=== PATIENT | female | born 1960 | race Caucasian/White ===

== ENCOUNTER 2018-07-01 04:18 | Inpatient (IN) ==
--- NOTE | 2018-07-01 04:52 | PROVIDER DOCUMENTATION ---
HPI-Abdominal Pain/GI Problem - General Chief Complaint: Abdominal Pain Stated Complaint: ABDOMINAL PAIN Time Seen by Provider: 07/01/18 04:51 Allergies/Adverse Reactions: Patient Allergies Allergy/AdvReac Type Severity Reaction Status Date / Time cefuroxime axetil * Allergy Severe RASH Verified 10/09/15 12:27 [From Ceftin] codeine Allergy RASH Verified 10/09/15 12:27 levofloxacin [From Levaquin] Allergy RASH Verified 10/09/15 12:27 metronidazole [From Flagyl] Allergy RASH Verified 10/09/15 12:27 Penicillins Allergy RASH Verified 10/09/15 12:27 Home Medications: Home Medication List Medication Instructions Recorded Confirmed Last Taken Type Aspirin 81 mg PO DAILY 04/07/14 07/01/18 10/08/15 History Fluoxetine HCl [Prozac] 20 mg PO HS 04/07/14 07/01/18 10/08/15 History Paroxetine HCl [Paxil] 20 mg PO DAILY 04/07/14 07/01/18 10/08/15 History Diclofenac Na D.r. [Voltaren] 50 mg PO BID 07/01/18 07/01/18 Unknown History Fexofenadine [Gaviota] 180 mg PO DAILY 07/01/18 07/01/18 Unknown History Lansoprazole [Prevacid] 30 mg PO DAILY 07/01/18 07/01/18 Unknown History Losartan/Hydrochlorothiazide 1 tab PO DAILY 07/01/18 07/01/18 Unknown History [Losartan-Hctz 100-25 mg Tab] Vitamin E 1,000 unit PO DAILY 07/01/18 07/01/18 Unknown History - History of Present Illness-ABD Nature of Presenting Problems: A 57 y/o female presents with Abd pain, dry heaves and nausea. The pt started having symptoms on and since then has been getting progressively worse. The pt was in the ER on and was d/c home after she had blood work and her symptoms were controlled. The pt felt better for a day and did not need to take her meds but last night her symptoms got worse and could not tolerate it. Has been having dry heaves and nausea. Has had a BM yesterday. Denies any fever of urinary symptoms. Took some hydrocodone last night and did not feel better. Review of Systems - Adult - REVIEW OF SYSTEMS - ADULT Constitutional: reports: no symptoms reported Eyes: reports: no symptoms reported Ears, Nose, Mouth & Throat: reports: no symptoms reported Cardiovascular: reports: no symptoms reported Respiratory: reports: no symptoms reported Gastrointestinal: reports: see HPI Genitourinary: reports: no symptoms reported Musculoskeletal: reports: no symptoms reported Integumentary: reports: no symptoms reported Neurological: reports: no symptoms reported Psychiatric: reports: no symptoms reported Endocrine: reports: no symptoms reported Hematologic/Lymphatic: reports: no symptoms reported Allergic/Immunologic: reports: no symptoms reported All Other Systems: Reviewed and Negative Past History - Adult - PAST MEDICAL HISTORY-ADULT Review of Records: reports: Old Records Reviewed, Nursing Assessment Review, Medications Reviewed, Social history reviewed & non-contributory. Major Childhood Illnesses: reports: denies history Cardiovascular: reports: denies history Respiratory: reports: denies history Gastrointestinal: reports: GERD Obstetrical/Gynecological: reports: denies history Genitourinary: reports: denies history Musculoskeletal: reports: neck/back injury (mild LBP) Neurological: reports: denies history Psychiatric: reports: anxiety Endocrine/Immune: reports: denies history - PRIOR SURGERIES/PROCEDURES Surgical/Procedure History: reports: BTL, other (ovary, breast lumpectomy) Physical Exam-General - CONSTITUTIONAL General Appearance: appears well, moderate distress Progress - PLAN OF CARE/RESULTS Progress/Plan/Lab Results: Vital Signs - 8 hr 07/01/18 04:29 Temperature 97.5 F L Pulse Rate 99 H Respiratory Rate 16 Blood Pressure 132/83 O2 Sat by Pulse Oximetry 96 CT results d/w pt and her . discussed the plan. Will place a NG tube, NPO, Protonix and consult surgery. d/w Dr Chase. agrees with the plan. admit to PCP and he will be on coonsult. @7:00 am d/w Dr Tidwell. Plan to admit the pt. Result Diagrams: 07/01/18 05:18 07/01/18 05:18 Departure - Departure Date of Disposition Decision: 07/01/18 Time of Disposition Decision: 07:20 DIAGNOSIS: Mesenteric mass, Small bowel obstruction Disposition: ADMITTED INPATIENT 09 Certified Medical Emergency: Emergent Condition: Stable Referrals and Follow-Ups: River Tidwell MD [Primary Care Provider] - - Critical Care Note This patient required my direct & personal management of CC.: No Attestation - Physician/ MOO Attestation Patient care was provided by Advanced Practice Provider:: No The physician spent face to face time with patient:: Yes Advanced Practice Provider documentation review:: Supervising physician onsite and consulted in the evaluation and care of this patient. The physician did have a face to face encounter with the patient.
[2018-07-01 05:31] LABS: BASO# 0.03 X1000 (0.0-0.2); BASO% 0.3 % (0.0-0.8); EOS# 0.11 X1000 (0.0-0.7); HEMATOCRIT 39.2 % (37.0-47.0); IMM GRAN# 0.02 X1000 (0.0-0.04); IMM GRAN% 0.2 % (0.0-0.5); LYMPH# 1.19 X1000 (1.2-3.4); LYMPH% 11.2 % (20.5-51.1); MCH 29.7 PG (27-31); MCHC 33.2 g/dL (33-37); MCV 89.5 FL (81-99); MONO# 0.91 X1000 (0.11-0.59); MONO% 8.6 % (1.7-9.3); MPV 9.6 FL (7.4-10.4); NEUT# 8.35 X1000 (1.4-6.5); NEUT% 78.7 % (42.2-75.2); PLT 349 X1000 (130-400); RBC 4.38 XMIL (4.2-5.4); RDW 13.2 % (11.5-14.5); WBC 10.61 X1000 (4.8-10.8)
[2018-07-01 06:11] LABS: AGAP 14; ALB/GLOB RATIO 1.4; ALBUMIN 4.1 g/dL (3.5-5.0); ALKALINE PHOSPHATASE 102 U/L (32-104); AMYLASE 23 U/L (20-200); BUN 14 mg/dL (8-22); CALCIUM 9.2 mg/dL (8.8-10.2); CHLORIDE 95 mmol/L (98-107); COSMO 275; CREATININE 0.7 mg/dL (0.5-0.9); ESTIMATED GFR > 60; GLUCOSE 148 mg/dL (70-104); GOT 18 U/L (10-30); GPT 19 U/L (10-36); LIPASE 21 U/L (13-60); POTASSIUM 3.6 mmol/L (3.5-5.1); SODIUM 136 mmol/L (136-145); TCO2 27 mmol/L (25-35); TOTAL BILIRUBIN 0.33 mg/dL (0.20-1.00)
[2018-07-01] MEDS ORDERED: SODIUM CHLORIDE 0.9% INJ ONE (06:29)
[2018-07-01] MEDS ORDERED: PROTONIX IV ONE (06:29)
[2018-07-01] MEDS ORDERED: NS 1,000 ML IV ONE (06:30)
[2018-07-01 06:32] LABS: URINE SOURCE CLEAN CATCH
[2018-07-01 07:01] LABS: BILIRUBIN URINE NEGATIVE (NEGATIVE); BLOOD URINE NEGATIVE (NEGATIVE); COLOR STRAW; GLUCOSE URINE NEGATIVE (NEGATIVE); KETONE URINE NEGATIVE (NEGATIVE); LEUKOCYTES URINE NEGATIVE (NEGATIVE); NITRITE URINE NEGATIVE (NEGATIVE); PH URINE 7.5; PROTEIN URINE TRACE mg/dL (NEGATIVE); SP GRAVITY URINE > 1.050; TURBIDITY URINE CLEAR (CLEAR); UROBILINOGEN URINE NORMAL (NORMAL)
[2018-07-01 07:03] LABS: UR EPITHELIAL CELLS <10 /HPF (<10); URINE BACTERIA NEGATIVE /HPF; URINE RBC <10 /HPF (<10); URINE WBC <10 /HPF (<10)
--- NOTE | 2018-07-01 07:20 | Diag Imaging Result Doc PS360 ---
EXAM: CT ABD/PELVIS W/IV CONT ONLY 07/01/2018 HISTORY: ABD PAIN TECHNIQUE: This exam was performed using automated exposure control, adjustment of mA or kV according to patient size, and/or use of iterative reconstruction technique. COMMENT: There are platelike atelectatic changes in the right lower lobe and the lingula. Otherwise the appearance of the visualized portion of the chest has not changed significantly since 10/09/2015. The aorta is normal in caliber. The mesenteric and renal arteries are patent. There is a somewhat poorly defined area of increased enhancement in the anterior medial left hepatic lobe seen on image 23 of the arterial phase measuring less than 14 mm in AP dimension. This is not clearly identifiable on the previous study of 02/03/2010 which is the most recent previous study with contrast. This abnormality is not visible on the portal venous phase and may represent a small hemangioma. Otherwise the liver is unremarkable. The spleen is within normal limits. The adrenal glands are not enlarged. The pancreas is stable in appearance. The kidneys are without evidence of hydronephrosis or mass. There are multiple central mesenteric masses particularly around image 90 of the portal venous phase where there is a mass in the central mesentery measuring in excess of 8.4 cm transversely. There is stranding into the mesenteric fat around this mass. There is a smaller nodule seen on image 96 on the left side. There are multiple enlarged mesenteric nodes otherwise. This abnormality was not present at the time the previous study of 2009 nor wasn't present on the noncontrast examination of 10/09/2015. The mass enhances peripherally and may contain some areas of central necrosis. There are no calcifications. There is stool in the colon without evidence of dilatation. There is retained fluid in the stomach. The duodenum is normal in appearance as is the proximal jejunum. There is progressive dilatation of the more distal small bowel loops and the loops surrounding the mass in the central mesentery are distended with air-fluid levels. There appears to be a transition zone around image 111 slightly to the right of the midline with the more distal small bowel loops being normal in caliber. Pelvis: There is a small amount of free fluid in the cul-de-sac. There are no pelvic masses. The urinary bladder is not distended. There is no evidence of significant adenopathy. There are severe degenerative disc changes in the lower lumbar spine. There is a bone island in the left sacral darvin. The regional skeleton has not changed significantly since 10/09/2015. IMPRESSION: Mesenteric mass with desmoplastic reaction in the mesenteric fat. The differential diagnosis would include mesenteric desmoid, carcinoid, or lymphoma. The possibility of sclerosing mesenteritis is considered less likely. Secondary partial small bowel obstruction. Electronically signed by Michael Nash 07/01/2018 7:18 AM
--- NOTE | 2018-07-01 07:55 | Diag Imaging Result Doc PS360 ---
EXAM: CHEST/ABD TUBE PLACEMENT 07/01/2018 HISTORY: NG tube placement TECHNIQUE: NG tube placement at 0744 COMMENT: There is an NG tube with its tip in the distal stomach. IMPRESSION: NG tube in the stomach. Electronically signed by Michael Nash 07/01/2018 7:52 AM
--- NOTE | 2018-07-01 08:30 | HISTORY AND PHYSICAL ---
HISTORY OF PRESENT ILLNESS: Ms. Conrad stated that 2 weeks ago, she started having some epigastric pain but it had gotten better, to be episodic. This last couple of days, it seems to be more tense, starting on . This is Monday. Seems to have been continuous. Called me at 3:30 this morning. Said the pain was just quite severe and she is very nauseated. I had her come to the emergency room. She denies known fever or chills but pretty severe pain with nausea. By report, her bowels had been moving up until yesterday. PAST MEDICAL HISTORY: 1. PT at age 21. Pulmonary angiogram documented PT, deep venous thrombosis. Was treated at [facility] with Coumadin for a year. 2. Eye infection at age 17. Details unknown. For a while, thought she might lose her eye. 3. Gastroesophageal reflux. 4. Allergic rhinitis, which is seasonal. 5. Dr. Edwards has seen her in the past for headaches. 6. Dr. Viera saw her for chronic back pain, musculoskeletal pain due to degenerative disk disease. 7. History of dysmenorrhea. 8. Obesity. 9. History of chest pain. 10. Shoulder dystocia. 11. Bursitis. 12. Muscle spasms. 13. Alopecia areata. 14. General anxiety disorder. 15. Hypercholesterolemia. 16. Primary hypothyroidism. 17. Hypertension. 18. Chronic fatigue syndrome. 19. Fatty infiltration of the liver, fatty liver disease. PAST SURGICAL HISTORY: 1. Left ovary removed in 2009. Right is still in place. 2. Dilatation and curettage on 08/28/2012. SOCIAL HISTORY: Born in [place], [place]. Lived in the [facility] most of her life. Former smoker, 1 pack per day for 20 years. Counseled for nutrition, counseled for physical activity in the past. She is , has one daughter. FAMILY HISTORY: Father living. Mother, I think is still living. History of heart trouble in the family. Had a colonoscopy back in September 2010. Has recently seen Dr. Washburn about this abdominal pain. MEDICATIONS: Reviewed her present medications. REVIEW OF SYSTEMS: General: Not aware of any weight gain or loss. She has not been able eat much in the last couple days because of the nausea and the pain. I am not sure if she can keep the food down. HEENT: No change in hearing or visual acuity. Respiratory: No increased work of breathing or dyspnea. Cardiovascular: No chest pain or tachy palpitations. GI/: Unremarkable. Musculoskeletal/Neurologic: No significant complaints. Endocrinologic/Hematologic: No significant history. PHYSICAL EXAMINATION: VITAL SIGNS: In the emergency room, temperature 97.5 degrees, pulse 84, respirations 14, blood pressure 132/73. HEENT: Pupils are equal and round. LUNGS: Clear in all lung balbuena. CARDIOVASCULAR EXAMINATION: Regular rhythm and rate without murmur or S3. ABDOMEN: Soft. At the present, abdomen is distended. Epigastrium is sore to touch, especially around the right upper quadrant and epigastric area. SKIN: Warm and dry. LAB: White count 10,610, hematocrit 39, platelet count 349,000. Sodium 136, potassium 3.6, chloride 95, BUN 14, creatinine 0.7, total calcium 9.2. AST is 18, ALT 19, alkaline phosphatase is 102, albumin is 4.1. Urinalysis was unremarkable. Abdominal and pelvic CT, mesenteric mass with desmoplastic reaction in the mesenteric fat. The differential diagnosis, apparently, mesenteric desmoid, carcinoid, or lymphoma. The possibility of sclerosing mesenteritis but less likely, and secondary partial small bowel obstruction. ASSESSMENT AND PLAN: 1. Small bowel obstruction, mesenteric mass. We will continue nasogastric tube. Give her some fluids. We will check and follow her electrolytes. Dr. Chase has been consulted and I will have Dr. Washburn follow as well, depending on what Dr. Chase wants to do. 2. History of pulmonary thromboembolism when she was young, at age 21. 3. History of gastroesophageal reflux. 4. History of dysmenorrhea. 5. Obesity. 6. Shoulder dystocia in the past. 7. History of primary hypothyroidism. 8. Hypertension. 9. At one point, felt she had steatohepatitis and fatty infiltration of the liver. Liver enzymes are down at this point. cc: River Tidwell MD
--- NOTE | 2018-07-01 09:43 | GENERAL SURGERY CONSULTATION ---
DATE: 07/01/2018 HISTORY OF PRESENT ILLNESS: It is 9 o'clock in the morning. Ms. Conrad is a pleasant lady who reported some abdominal pain 3 weeks ago. It improved. She had another episode that necessitated a trip to the emergency department. It improved until yesterday evening when she had recurrent pain in her epigastrium. She had some nausea. Her bowels have been moving. They have been soft. She has reported some night sweats. Denies any fever. PAST MEDICAL HISTORY: Pertinent for a history of deep venous thrombosis, some gastroesophageal reflux, some chronic back pain, obesity, some mild anxiety. PAST SURGICAL HISTORY: Previous surgery includes a left oophorectomy, and a D and C in 2012. MEDICATIONS: Listed and include Prozac 20 mg at bedtime, aspirin 81 mg daily, Paxil 20 mg daily, Voltaren 50 mg b.i.d., Gaviota 180 mg daily, Prevacid 30 mg daily, losartan/hydrochlorothiazide one daily, and vitamin E 1000 units daily. ALLERGIES: She has allergies to cefuroxime, codeine, Levaquin, Flagyl, and penicillins. FAMILY HISTORY: Noted for some heart trouble. SOCIAL HISTORY: She is . 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 She is a former smoker. Denies illicit drug use. REVIEW OF SYSTEMS: As noted above. It is pertinent for some abdominal pain, night sweats. No fever. No diarrhea. PHYSICAL EXAMINATION: Vital Signs: She is afebrile. Heart rate 85, blood pressure 141/91. No cervical adenopathy. Bilateral breath sounds. Heart: Regular rate and rhythm. Abdomen: Soft. She is mildly tender in the epigastrium. No peripheral edema. She is awake and alert. DIAGNOSTICS/LABS: White count 10,600, hemoglobin 13, hematocrit 39. Chloride 95. LFTs are normal. ASSESSMENT: CT shows a mesenteric mass. She does report some night sweats which could coincide with lymphoma or a carcinoid. PLAN: The plan will be to work her up. For the carcinoid, I think we will get a chromogranin A a level and we would also get an octreotide scan. She might come to biopsy if this does not prove to be a carcinoid, in order to see if it is a lymphoma. We will use an NG tube for a partial bowel obstruction for a few hours. Hopefully, we can get it out by tomorrow. cc: MD River Lakhani MD
[2018-07-01] MEDS ORDERED: TYLENOL PO PRN (11:11)
[2018-07-01] MEDS ORDERED: ZOFRAN IV PRN (11:11)
[2018-07-01 12:08] LABS: INR 1.04; PROTIME 14.4 Seconds (11.0-16.0)
[2018-07-01 12:09] LABS: PTT 37.3 Seconds (22.3-41.8)
[2018-07-01] MEDS: PROTONIX IV SCH ×2 (14:04→23:00)
[2018-07-01] MEDS: PRILOSEC PO SCH (14:04)
[2018-07-01] MEDS: HYZAAR 50/12.5 MG PO SCH (14:04)
[2018-07-01] MEDS: PAXIL PO SCH (14:04)
[2018-07-01] MEDS: SODIUM CHLORIDE 0.9% INJ SCH ×2 (14:04→23:00)
[2018-07-02 05:51] LABS: BASO# 0.04 X1000 (0.0-0.2); BASO% 0.7 % (0.0-0.8); EOS# 0.19 X1000 (0.0-0.7); EOS% 3.1 % (0.0-10.0); HEMATOCRIT 37.6 % (37.0-47.0); HEMOGLOBIN 12.4 g/dL (12.0-16.0); LYMPH# 1.38 X1000 (1.2-3.4); LYMPH% 22.8 % (20.5-51.1); MCH 29.9 PG (27-31); MCV 90.6 FL (81-99); MONO% 9.9 % (1.7-9.3); MPV 9.7 FL (7.4-10.4); NEUT# 3.85 X1000 (1.4-6.5); NEUT% 63.5 % (42.2-75.2); PLT 323 X1000 (130-400); RBC 4.15 XMIL (4.2-5.4); RDW 13.2 % (11.5-14.5); WBC 6.06 X1000 (4.8-10.8)
[2018-07-02 06:24] LABS: AGAP 13; ALBUMIN 3.5 g/dL (3.5-5.0); ALKALINE PHOSPHATASE 88 U/L (32-104); BUN 12 mg/dL (8-22); CALCIUM 8.6 mg/dL (8.8-10.2); CHLORIDE 102 mmol/L (98-107); COSMO 279; CREATININE 0.7 mg/dL (0.5-0.9); ESTIMATED GFR > 60; GLUCOSE 101 mg/dL (70-104); GOT 25 U/L (10-30); GPT 21 U/L (10-36); MAGNESIUM 2.4 mg/dL (1.5-2.7); POTASSIUM 3.6 mmol/L (3.5-5.1); SODIUM 140 mmol/L (136-145); TCO2 25 mmol/L (25-35); TOTAL BILIRUBIN 0.32 mg/dL (0.20-1.00); TOTAL PROTEIN 7.1 g/dL (6.3-8.3)
--- NOTE | 2018-07-02 07:05 | EKG Report ---
Test Performed on : 07/02/2018 06:44:48 AM Test Reason : chest pain Blood Pressure : / mmHG Vent. Rate : 082 BPM Atrial Rate : 082 BPM P-R Int : 152 ms QRS Dur : 082 ms QT Int : 394 ms P-R-T Axes : 039 006 039 degrees QTc Int : 460 ms Normal sinus rhythm. Normal ECG No previous ECGs available Confirmed by Aurora HUGHES, Alberto ([id number]) on 07/02/2018 8:57:26 AM
[2018-07-02] MEDS: NS 1,000 ML IV SCH ×2 (08:50→22:15)
[2018-07-02] MEDS: HYZAAR 50/12.5 MG PO SCH (12:05)
[2018-07-02] MEDS: PRILOSEC PO SCH (12:05)
[2018-07-02] MEDS: PAXIL PO SCH (12:05)
[2018-07-02] MEDS: PROTONIX IV SCH ×2 (12:06→22:16)
[2018-07-02] MEDS: SODIUM CHLORIDE 0.9% INJ SCH ×2 (12:06→22:15)
--- NOTE | 2018-07-02 13:16 | PROGRESS NOTE ---
DATE: 07/02/2018 SUBJECTIVE: Ms. Conrad had a pretty uneventful night. She is wanting some food. She is no longer nauseated. Still has NG tube in. OBJECTIVE: She has remained afebrile. Temperature is 97.9, pulse 85, respirations 20, blood pressure 154/69. Pupils are equal and round. Lungs are clear in all lung balbuena. Cardiovascular: Regular rhythm and rate without murmur or S3. Abdomen is soft, nondistended. DIAGNOSTIC DATA: Review of her blood work is really unremarkable. CT of abdomen and pelvis with mesenteric mass with desmoplastic reaction in the mesenteric fat. Questionable of whether there is partial small bowel obstruction. ASSESSMENT AND PLAN: I am going to let her have full liquids and see if Surgery and GI are okay with her having the NG tube taken out. Dr. Washburn has been consulted. Dr. Chase is on the case. So we are going to check and see if there is any sign of carcinoid tumor. I guess there is the possibility of lymphoma or other and then decide based no those studies whether she needs surgery. cc: River Tidwell MD
--- NOTE | 2018-07-02 17:47 | GENERAL SURGERY PROGRESS NOTE ---
DATE: 07/02/2018 Ms. Conrad has passed some gas, had a bowel movement today. She has not had much out of her NG tube. The plan is to remove her NG tube. Her workup for the mesenteric mass is in progress. cc: MD River Lakhani MD
--- NOTE | 2018-07-02 18:31 | GASTROENTEROLOGY CONSULTATION ---
DATE: 07/02/2018 REASON FOR CONSULTATION: Abdominal pain, abnormal findings per imaging studies. HISTORY OF PRESENT ILLNESS: This is a 57-year-old white female who reports onset of symptoms around 3-4 weeks ago. She had complained of abdominal pain, burning in the abdomen, with episodes of nausea and dry heaves. Her symptoms had actually gotten better, but then came back over the last week. She actually went in to the emergency room and was discharged to follow with a hand cloth cutter. The patient had actually called our office last week to make an office visit. Her symptoms worsened and ended her back into the hospital. She has had a colonoscopy in the past, but never had an EGD. IMAGING STUDIES: Abdominal pelvic CT scan showed a small amount of free fluid in the cul-de-sac. No pelvic mass. Urinary bladder was not distended. There was severe degenerative disk changes in the lumbar spine. There was noted a mesenteric mass with desmoplastic reaction in the mesenteric fat, secondary partial small bowel obstruction. The patient has had an NG-tube placed, there was only small amounts in the suction canister. At that time of my evaluation her NG tube had been clamped, and she was tolerating small amounts of liquids. She continues to complain of pain, but it has improved slightly. PAST MEDICAL HISTORY: GERD, history of headaches, chronic back pain, degenerative disk disease, hypothyroidism, hypercholesterolemia, hypertension. PAST SURGICAL HISTORY: Left oophorectomy, left breast lumpectomy, dilatation and curettage in 2012. ALLERGIES: Ceftin causing rash. Codeine causing rash. Levaquin causing rash. Flagyl causing rash. Penicillin causing rash. HOME MEDICATIONS: Aspirin 81 mg every other day, Voltaren 50 mg daily, Gaviota 180 mg daily, Prozac 20 mg at night, Prevacid 30 mg daily, losartan/hydrochlorothiazide 100/25 daily, Zofran 4 mg as needed, Percocet 5/325 every 4-6 hours as needed, Paxil 20 mg daily, vitamin E 1000 units twice a day. SOCIAL HISTORY: She is . Former smoker. She has 1 daughter. REVIEW OF SYSTEMS: Per history of present illness. PHYSICAL EXAMINATION: Vital Signs: Temperature 98.0 degrees, pulse 88, respirations 18, blood pressure 152/77. General: The patient is awake and alert, no acute distress. HEENT: Normocephalic and atraumatic. Pupils are equal, round, and reactive to light. Sclerae are anicteric. Respiratory: Lung sounds clear. Cardiovascular: Regular rate and rhythm. Abdomen: Soft, tender with palpation. Nasogastric tube is clamped. Extremities: No lower extremity edema noted. LABORATORY DATA: Hematology: WBC 6.06, hemoglobin 12.4, hematocrit 37.6, MCV 90.6, platelet 323,000. Chemistry: Sodium 140, potassium 3.6, chloride 102, CO2 is 25, BUN 12, creatinine 0.7, glucose 101. Pending labs: Urine for 5-HIAA and Chromogranin A. She had an octreotide scan ordered. ASSESSMENT AND PLAN: 1. Abdominal pain. 2. Nausea and vomiting. 3. Secondary partial small bowel obstruction possibly related to the mesenteric masses seen on imaging. She has been seen by Dr. [facility] with [facility], workup is in progress. 4. Would continue symptomatic treatment and supportive care. Continue Protonix. Awaiting workup results. She may need further workup including exploratory laparotomy. GI will be following. Further plans will be made according to results. I have discussed this case with Dr. Washburn. Further plans will be made by him. Dictated by KIMBERLY Rivera for Babar Washburn MD cc: KIMBERLY Gallegos MD Allen J. Schmidt, MD MTDD
[2018-07-03] MEDS: PAXIL PO SCH (07:59)
[2018-07-03] MEDS: PRILOSEC PO SCH (07:59)
[2018-07-03] MEDS: HYZAAR 50/12.5 MG PO SCH (07:59)
--- NOTE | 2018-07-03 08:27 | PROGRESS NOTE ---
DATE: 07/03/2018 SUBJECTIVE: Ms. Conrad is feeling better. NG tube is out. She is tolerating feeding and remains afebrile. Her abdomen is not hurting. No nausea. OBJECTIVE: Temperature 98.1 degrees, pulse 77, respirations 19, blood pressure 153/53. Pupils are equal and round. Lungs are clear in all lung balbuena. Cardiovascular Examination: Regular rhythm and rate without murmur or S3. Abdomen is soft. Skin is warm and dry. Urine output was 1600 mL. Blood sugar 93, 86, 113. ASSESSMENT AND PLAN: Abdominal pain, nausea, vomiting, secondary to partial small bowel obstruction, possibly related to mesenteric masses seen on imaging. Workup in progress. Continue Protonix. Nasogastric tube is out. May need further workup including exploratory laparotomy. We will see what studies show. She is passing some gas and had a bowel movement so nasogastric tube is out. Looking at her orders, I do not see any change at this point. Normal saline at 85 mL an hour. She is on her Paxil 20 mg a day, Prilosec 20 mg a day. cc: River Tidwell MD
[2018-07-03] MEDS: NS 1,000 ML IV SCH ×2 (10:06→23:30)
[2018-07-03] MEDS: PROTONIX IV SCH ×2 (16:35→22:37)
--- NOTE | 2018-07-03 18:25 | GASTROENTEROLOGY PROGRESS NOTE ---
DATE: 07/03/2018 SUBJECTIVE: Patient was walking in her room. She had just gotten a shower. I believe there are plans for her to have the first part of the OctreoScan test done today. Chromogranin A and 5HIAA urine test have been received. Results are pending. OBJECTIVE: Vital Signs: Temperature 98.4 degrees, pulse 76, respirations , blood pressure 138/66. General: Patient is awake, alert, no acute distress. She is walking in her room without difficulty. LABORATORY: Hematology: WBC 6.06, hemoglobin 12.4, hematocrit 37.6, MCV 90.6, platelet 323,000. Chemistry: Sodium 140, potassium 3.6, chloride 102, CO2 of 25, BUN 12, creatinine 0.7, glucose 101, calcium 8.6, magnesium 2.4, total bilirubin 0.32, AST 25, ALT 21, alkaline phosphatase 88. Amylase 23, lipase 21. ASSESSMENT AND PLAN: 1. Abdominal pain, improved. 2. Nausea and vomiting, improved. Her NG tube has been removed. 3. Possible partial small bowel obstruction possibly related to mesenteric mass on imaging. The patient has been seen by Dr. Chase. Workup is in progress. She is to have OctreoScan today. Urine for 5HIAA and chromogranin A are pending. We will follow those results. Further plans will be made according to findings. Gastroenterology will continue to follow. I have discussed this case with Dr. Washburn. Dictated by KIMBERLY Rivera for Babar Washburn MD cc: KIMBERLY Gallegos MD Allen J. Schmidt, MD
[2018-07-03] MEDS: SODIUM CHLORIDE 0.9% INJ SCH (22:37)
[2018-07-04] MEDS: HYZAAR 50/12.5 MG PO SCH (08:20)
[2018-07-04] MEDS: PRILOSEC PO SCH (08:20)
[2018-07-04] MEDS: PAXIL PO SCH (08:21)
--- NOTE | 2018-07-04 08:42 | Diag Imaging Result Doc PS360 ---
OCTREOSCAN MULTI DAY W/SPECT - 07/02/2018 INDICATION: mesenteric mass TECHNIQUE: 6.2 mCi of Octreoscan was used COMPARISON: CT from 07/01/2018 FINDINGS: There is normal localization pattern of the radiotracer. There is no abnormal or suspicious area of uptake. IMPRESSION: No abnormal uptake. The mesenteric mass is unlikely to be a carcinoid. Electronically signed by Felice Palma 07/04/2018 8:39 AM
--- NOTE | 2018-07-04 10:01 | PROGRESS NOTE ---
DATE: 07/04/2018 SUBJECTIVE: Ms. Conrad is feeling much better. She still gets a tinge of pain across the upper abdomen around the epigastric area, but nothing as severe as when she presented. Her bowels are moving. She has not noticed any blood in her stool. OBJECTIVE: Vital Signs: Temperature 97.9 degrees, pulse 82, respirations 18, blood pressure 146//68. Eyes: Pupils are equal and round. Lungs: Clear in all lung balbuena. Cardiovascular exam: Regular rhythm and rate without murmur or S3. Abdomen: Soft. Skin: Warm and dry. : Urine output 1300 mL. Blood sugars 86, 113. LABS: All of her labs pretty unremarkable. Lab from yesterday: White count 6060, hematocrit 37, platelet count 323,000. Blood sugars have remained basically in the normal range. Her octreotide SPECT study: There was normal uptake and mesenteric mass is unlikely to be carcinoid. So, we may need to get tissue diagnosis. We will discuss with Dr. Chase his plans. ASSESSMENT AND PLAN: Right now, she is just on clear liquids. She is on her Paxil 20 mg a day, Protonix 40 mg IV q. 12 hours, Prilosec 20 mg a day, and normal saline at 85 mL an hour. GI is following. NG tube is out. No further nausea. Bowels seem to have opened up. cc: River Tidwell MD
--- NOTE | 2018-07-04 14:53 | GASTROENTEROLOGY PROGRESS NOTE ---
DATE: 07/04/2018 SUBJECTIVE: The patient is feeling better. She has less pain. She had OctreoScan 2nd portion of the study today. Findings were showing normal localization pattern of the radiotracer with no abnormal or suspicious area of uptake. Impression: No abnormal uptake. Mesenteric mass is unlikely to be carcinoid. She did have chromogranin A test that was elevated, 518. Urine for 5HIAA is pending. OBJECTIVE: Vital Signs: Temperature 98.2 degrees, pulse 82, respirations 16, blood pressure 136/65. General: Patient is awake, alert, no acute distress. She has family at the bedside. LABORATORY: Hematology: WBC 6.06 hemoglobin 12.4, hematocrit 37.6, MCV 90.6, platelet 323,000. Chemistry: Sodium 140, potassium 3.6, chloride 102, CO2 of 25, BUN 12, creatinine 0.7, glucose 101, calcium 8.6, magnesium 2.4, total bilirubin 0.32, AST 25, ALT 21, alkaline phosphatase 88. ASSESSMENT AND PLAN: 1. Abdominal pain has improved. 2. Nausea and vomiting have improved. Her NG tube was removed. 3. Possible small bowel obstruction. 4. Mesenteric masses on imaging. OctreoScan did not show evidence of carcinoid. Chromogranin A is elevated. Urine for 5HIAA is pending. PLAN: Continue symptomatic treatment and supportive care. Await recommendation by Dr. Chase. We will continue to follow and be available if needed. I have discussed this case with Dr. Washburn. Dictated by KIMBERLY Rivera for Babar Washburn MD cc: KIMBERLY Gallegos MD Allen J. Schmidt, MD
[2018-07-04] MEDS: PROTONIX IV SCH ×2 (16:01→23:54)
[2018-07-04] MEDS: NS 1,000 ML IV SCH (17:10)
--- NOTE | 2018-07-04 19:17 | GENERAL SURGERY PROGRESS NOTE ---
DATE: 07/04/2018 SUBJECTIVE: Ms. Conrad is tolerating her liquids. LABORATORY DATA: Her octreotide scan was read as negative. Her chromogranin A level is elevated, 5-HIAA level is pending. PLAN: We will plan a laparoscopy with biopsy on Monday, possible conversion to laparotomy if we cannot get tissue laparoscopically. I have discussed this with her and her family. cc: MD River Lakhani MD
[2018-07-05] MEDS: NS 1,000 ML IV SCH ×2 (04:07→18:03)
[2018-07-05] MEDS: HYZAAR 50/12.5 MG PO SCH (08:15)
[2018-07-05] MEDS: PAXIL PO SCH (08:15)
--- NOTE | 2018-07-05 10:04 | PROGRESS NOTE ---
DATE: 07/05/2018 SUBJECTIVE: Ms. Conrad has had a good night. She tolerated the soft diet. No abdominal pain. No nausea. She has had a bowel movement. OBJECTIVE: She remains afebrile. Temperature 98.2 degrees, pulse 80, respirations 20, and blood pressure 150/62. Pupils are equal and round. Lungs are clear in all lung balbuena. Cardiovascular exam with regular rhythm and rate without murmur or S3. Abdomen is soft. Skin is warm and dry. Urine output is 2500 mL. ASSESSMENT AND PLAN: 1. Abdominal pain is improved. We found a mesenteric mass on the CT scan. Her octreotide scan showed no evidence of carcinoid. Her chromogranin A was elevated. Waiting on the 5 HIAA urine study. Our plan is to do laparoscopic biopsy on Monday per Dr. Chase. I do have her on a proton pump inhibitor. 2. History of anxiety. Continue her Paxil. cc: River Tidwell MD
[2018-07-05] MEDS: PROTONIX IV SCH (12:48)
[2018-07-05] MEDS: SODIUM CHLORIDE 0.9% INJ SCH (12:48)
--- NOTE | 2018-07-05 18:38 | GENERAL SURGERY PROGRESS NOTE ---
DATE: 07/05/2018 Ms. Conrad' 5HIAA test was negative for carcinoid as well. So she is having no abdominal pain now and she is eating satisfactorily. PLAN: The plan then will be a laparoscopy with biopsy for tomorrow, laparotomy if needed. I have discussed this with her. She understands. cc: MD River Lakhani MD
[2018-07-06] MEDS: SODIUM CHLORIDE 0.9% INJ SCH
[2018-07-06] MEDS: NS 1,000 ML IV SCH ×2 (04:19→23:32)
[2018-07-06] MEDS ORDERED: DIPRIVAN 1% ONE (08:41)
[2018-07-06] MEDS ORDERED: FENTANYL ONE (08:41)
[2018-07-06] MEDS ORDERED: XYLOCAINE-MPF 2% ONE (08:42)
[2018-07-06] MEDS ORDERED: ROBINUL ONE ×2 (08:42→10:22)
[2018-07-06] MEDS ORDERED: QUELICIN (DOSE) ONE (08:42)
[2018-07-06] MEDS ORDERED: MARCAINE 0.25% PF/EPI 1:200,000 ONE (09:39)
[2018-07-06] MEDS ORDERED: LR 1,000 ML ONE (09:39)
[2018-07-06] MEDS ORDERED: ZOFRAN ONE (10:22)
[2018-07-06] MEDS ORDERED: NEOSTIGMINE ONE (10:22)
[2018-07-06] MEDS ORDERED: DECADRON ONE (10:22)
[2018-07-06] MEDS ORDERED: STERILE WATER INJ. ONE (10:22)
[2018-07-06] MEDS ORDERED: NORCURON ONE (10:22)
[2018-07-06] MEDS: DILAUDID ONE ×4 (11:58→12:09)
[2018-07-06] MEDS ORDERED: PHENERGAN ONE (12:07)
[2018-07-06] MEDS: PROTONIX IV SCH ×3 (13:26→21:58)
[2018-07-06] MEDS: HYZAAR 50/12.5 MG PO SCH (13:26)
[2018-07-06] MEDS: PAXIL PO SCH (13:26)
[2018-07-06] MEDS: DILAUDID IV PRN (13:41)
--- NOTE | 2018-07-06 14:46 | OPERATIVE NOTE ---
PROCEDURE DATE: 07/06/2018 PROCEDURE: Laparoscopy with lysis of adhesions and biopsy of mesenteric mass. SURGEON: Tres Chase MD. MEDICATION AIDE: Roldan. PREOP DIAGNOSIS: Mesenteric mass with abdominal pain. POSTOP DIAGNOSIS: Mesenteric mass with abdominal pain with intraabdominal adhesions. DESCRIPTION OF PROCEDURE: Satisfactory general endotracheal anesthesia achieved. Abdomen is prepped and draped in a sterile fashion. We anesthetized the skin in the right upper quadrant. Used Optiview technique to enter the abdominal cavity the right upper quadrant. Under direct visualization, we used a 5 trocar in the right lower quadrant and 11 trocar in the midepigastrium. We rolled the patient to the left and then put her in Trendelenburg. There were quite a few intraabdominal adhesions to the anterior abdominal wall around the umbilicus and below it and we had to carefully take those down because there was small bowel stuck up to the anterior abdominal wall. We did this laparoscopically until the small bowel was free from the anterior abdominal wall. We then lifted up the omentum cephalad and let it fall that way and then reflected the small bowel to the left as best we could and then palpated the mesentery of the small bowel and we could tell that the small bowel had what appeared to be some obstructed [*] and there was firm, hard mesenteric tissue in the mesentery of the small bowel. I went to the edge of the small bowel mesentery and then took some biopsies with the biopsy forceps through the mesentery. We did generate some venous bleeding. With pressure and cautery and then the Surgicel SNoW we were able to achieve satisfactory hemostasis. 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 Hemostasis was satisfactory. We then flattened the patient. We actually used a Octavio-Joel wound closure for the 2 11 trocar sites passing 2-0 Polysorb through the abdominal wall. We then desufflated, removed all our trocars and then after securing those stitches of the abdominal wall we then closed the skin at each incision with 4-0 Polysorb subcuticular stitches. Sterile OpSites were applied. She tolerated the procedure satisfactory. Sent to recovery room in satisfactory condition. cc: MD River Lakhani MD
[2018-07-06] MEDS: PERIDEX MT SCH (21:58)
[2018-07-07] MEDS: PROTONIX IV SCH (01:15)
[2018-07-07] MEDS: DILAUDID IV PRN (03:32)
[2018-07-07] MEDS ORDERED: NORCO-7.5 PO PRN (08:47)
--- NOTE | 2018-07-07 09:09 | PROGRESS NOTE ---
DATE: 07/07/2018 SUBJECTIVE: Ms. Conrad is feeling much better. No pain. She is sore on the right side and but remains afebrile. She has been on liquids since the surgery. OBJECTIVE: Vital signs: Temperature 97.9 degrees, pulse 67, respirations 20, blood pressure 117/66. HEENT: Pupils are equal and round. Lungs: Clear in all lung balbuena. Cardiovascular: Regular rhythm and rate without murmur or S3. Abdomen: Soft, nondistended. Extremities: No pedal edema. Genitourinary: Urine output was over 3000 mL. LABORATORY DATA: Blood sugars look good at 86, 146, 113. ASSESSMENT AND PLAN: Abdominal pain, improved. Mesenteric mass found on CT, status post laparoscopic biopsy of mesenteric mass and lysis of adhesions. Seems to be doing well. She would like to see how she does on soft diet and we will take out her IV. Hopefully, she would like to try and go home in the morning. We will increase her activity. Waiting on the results of the biopsy which hopefully will be back next week. We will we send her home tomorrow to follow up with Dr. Chase in 1 week. cc: River Tidwell MD
[2018-07-07] MEDS: PAXIL PO SCH (09:16)
[2018-07-07] MEDS: HYZAAR 50/12.5 MG PO SCH (09:16)
[2018-07-07] MEDS: PERIDEX MT SCH ×2 (09:17→22:06)
[2018-07-07] MEDS: NEXIUM PO SCH (09:31)
--- NOTE | 2018-07-07 09:32 | PROGRESS NOTE ---
DATE: 07/07/2018 SUBJECTIVE: Ms. Conrad is status post diagnostic laparoscopy with biopsy of mesenteric mass. OBJECTIVE: All of her trocar sites are dressed and intact. Her abdomen is soft. She is tolerating a diet. Her diet is going to be advanced and it feels okay to discharge her from a surgical standpoint with followup with Dr. Chase this coming Monday to discuss pathology. cc: MD River Noel MD
--- NOTE | 2018-07-08 07:31 | DISCHARGE SUMMARY ---
ADMISSION DATE: 07/01/2018 DISCHARGE DATE: 07/07/2018 HISTORY AND HOSPITAL COURSE: She presented with sudden abdominal pain and cramping, mainly epigastric, and appeared to have a partial small-bowel obstruction. On CT scan, there was a mesenteric mass reported, so General Surgery was consulted. Dr. Chase saw her. She had some repeat abdominal pain for 3 weeks that seemed to be episodic, mainly in the epigastrium. We did put her on a proton pump inhibitor. I did a workup to try to rule out carcinoid with chromogranin A and HIAA urine level and octreotide scan. The SPECT scan/octreotide scan did not show any suspicious area of uptake. The HIAA was negative. The chromogranin level was high at 518 (less than 93 ng/mL was normal). Dr. Chase was able to do a laparoscopic biopsy and did some lysis of adhesions as well while he was there, and she tolerated the procedure well. Put her back on a soft diet, and she wanted to go home on 07/07/2018. PLAN: Plan is for her to follow up with Dr. Chase. Hopefully, pathology will be back, and decide what to do in regards to this mesenteric mass. I am going to keep her on a proton pump inhibitor. I am going to give her Nexium daily. She will take her Hyzaar 50/25 one a day. I will give her some Condon p.r.n. pain (7.5), Paxil 20 mg a day, and I will plan on seeing her back in 2 weeks. We will hold her Velian. cc: River Tidwell MD
[2018-07-08 08:06] VITALS: BP 148/65
[2018-07-08] MEDS: NEXIUM PO SCH (08:26)
[2018-07-08] MEDS: PERIDEX MT SCH (08:26)
[2018-07-08] MEDS: HYZAAR 50/12.5 MG PO SCH (08:26)
[2018-07-08] MEDS: PAXIL PO SCH (08:26)
--- NOTE | 2018-07-08 09:00 | PROGRESS NOTE ---
DATE: 07/08/2018 Ms. Talisha Conrad looks well this morning. Her trocar sites are intact. Her abdomen is soft. She is tolerating a diet. She has been able to ambulate in the halls. She will be discharged home with followup by Dr. Chase in about a week for discussion of her pathology report. cc: MD River Noel MD
== END 2018-07-08 08:49 | disposition home or self-care (01) | DRG 392 ==
LOC: ED 04:18 → 4N 04:19
PROVIDERS: ADMIT Emergency Medicine; ATTEND Emergency Medicine
CPT/HCPCS: 74000; 74018; 74177; 78803; 78804; 80053; 81001; 81050; 82150; 82948; 83497; 83605; 83690; 83735; 84443; 84484; 85025; 85610; 85730; 86316; 88305; 88313; 93005; 93010; 94761; 96361; 96374; 99285; A9270; A9572; C9113; J0330; J1100; J1170; J2405; J2550; J3010; J7030; J7120; Q9967; S0164; XXXXX